=== PATIENT | female | born 1980 | race American Indian/Alaskan Native ===

== ENCOUNTER 2017-04-07 15:29 | Emergency (ER) | payer BC ==
[2017-04-07 16:24] LABS: Anion Gap 15 mmol/L; Basophils % (Auto) 0.5 % (0.0-1.8); Blood Urea Nitrogen 9 mg/dL (7-17); Carbon Dioxide 24 mmol/L (22-30); Glucose 97 mg/dL (65-100); Hematocrit 40.5 % (30.3-42.9); Hemoglobin 12.9 gm/dl (10.1-14.3); Mean Corpuscular HGB Conc 32 % (30-34); Mean Corpuscular Hemoglobin 27 pg (28-32); Mean Corpuscular Volume 84 fl (79-97); Platelet Count 155 K/mm3 (140-440); Potassium 4.1 mmol/L (3.6-5.0); Red Blood Count 4.81 M/mm3 (3.65-5.03); Red Cell Distribution Width 14.1 % (13.2-15.2); Sodium 138 mmol/L (137-145); White Blood Count 7.6 K/mm3 (4.5-11.0)
--- NOTE | 2017-04-07 16:29 | Emergency Department Report ---
ED Chest Pain HPI - General Chief Complaint: Chest Pain Stated Complaint: CHEST PAIN Time Seen by Provider: 04/07/17 16:01 Source: patient Mode of arrival: Ambulatory Limitations: No Limitations - History of Present Illness Initial Comments: 36-year-old female with sudden onset of right upper chest pain which she describes as sharp in nature started approximately 1 hour prior to arrival. Currently her symptoms are resolved. She states the pain radiated to her right arm and she broke out and ankle swelling. She's had a history of anxiety in the past but she does not feel like this was a panic attack. She denies fevers nausea or vomiting. She did get a chill with the chest pain. No recent travel not on an oral OCPs and she is not a smoker. -: Sudden Onset: during rest Pain Location: right chest Pain Radiation: RUE Severity: severe Severity scale (0 -10): 6 Quality: sharp Consistency: now resolved Worsens With: nothing Other Symptoms: denies: cough, fever, syncope, acid taste in mouth, leg swelling Treatments Prior to Arrival: none - Related Data Previous Rx's Medication Instructions Recorded Last Taken Type Ibuprofen [Motrin 600 MG tab] 600 mg PO Q8H PRN #30 tablet 04/07/17 Unknown Rx Allergies Allergy/AdvReac Type Severity Reaction Status Date / Time No Known Allergies Allergy Verified 05/07/16 23:18 Heart Score - HEART Score History: Slightly suspicious EKG: Normal Age: < 45 Risk factors: No known risk factors Troponin: < normal limit HEART Score: 0 - Critical Actions Critical Actions: 0-3 pts:0.9-1.7%risk of adverse cardiac event.Candidate for discharge ED Review of Systems ROS: Stated complaint: CHEST PAIN Other details as noted in HPI Constitutional: denies: chills, fever Eyes: denies: eye pain, eye discharge, vision change ENT: denies: ear pain, throat pain Respiratory: SOB at rest. denies: cough, shortness of breath, wheezing Cardiovascular: chest pain. denies: palpitations, dyspnea on exertion Endocrine: no symptoms reported Gastrointestinal: denies: abdominal pain, nausea, diarrhea Genitourinary: denies: urgency, dysuria, discharge Musculoskeletal: denies: back pain, joint swelling, arthralgia Skin: denies: rash, lesions Neurological: denies: headache, weakness, paresthesias Psychiatric: anxiety. denies: depression Hematological/Lymphatic: denies: easy bleeding, easy bruising ED Past Medical Hx - Past Medical History Previous Medical History?: No - Surgical History Past Surgical History?: No - Family History Family history: no significant - Social History Smoking Status: Never Smoker Substance Use Type: Alcohol - Medications Home Medications: Home Medications Medication Instructions Recorded Confirmed Last Taken Type Ibuprofen [Motrin 600 MG tab] 600 mg PO Q8H PRN #30 tablet 04/07/17 Unknown Rx ED Physical Exam - General Limitations: No Limitations General appearance: alert, in no apparent distress - Head Head exam: Present: atraumatic, normocephalic - Eye Eye exam: Present: normal appearance - ENT ENT exam: Present: mucous membranes moist - Neck Neck exam: Present: normal inspection - Respiratory Respiratory exam: Present: normal lung sounds bilaterally. Absent: respiratory distress - Cardiovascular Cardiovascular Exam: Present: regular rate, normal rhythm. Absent: systolic murmur, diastolic murmur, rubs, gallop - GI/Abdominal GI/Abdominal exam: Present: soft, normal bowel sounds - Extremities Exam Extremities exam: Present: normal inspection - Back Exam Back exam: Present: normal inspection - Neurological Exam Neurological exam: Present: alert, oriented X3 - Psychiatric Psychiatric exam: Present: normal affect, normal mood - Skin Skin exam: Present: warm, dry, intact, normal color. Absent: rash ED Course Vital Signs 04/07/17 04/07/17 04/07/17 15:42 15:53 15:54 Temperature 98.8 F Pulse Rate 73 Respiratory 20 Rate Blood Pressure 113/74 O2 Sat by Pulse 100 98 97 Oximetry 04/07/17 04/07/17 04/07/17 15:55 15:59 16:00 Temperature Pulse Rate 77 74 Respiratory 15 20 17 Rate Blood Pressure 122/78 122/78 O2 Sat by Pulse 100 99 Oximetry 04/07/17 04/07/17 16:30 17:00 Temperature Pulse Rate 69 66 Respiratory 26 H 19 Rate Blood Pressure 123/70 135/88 O2 Sat by Pulse 99 99 Oximetry MEHREEN score - Mehreen Score Age > 65: (0) No Aspirin use within the Past 7 Days: (0) No 3 or more CAD Risk Factors: (0) No 2 or more Angina events in past 24 hrs: (0) No Known CAD with more than 50% Stenosis: (0) No Elevated Cardiac Markers: (0) No ST Deviation Greater than 0.5mm: (0) No MEHREEN Score: 0 ED Medical Decision Making - Lab Data Result diagrams: 04/07/17 15:51 04/07/17 15:51 Laboratory Results - last 24 hr 04/07/17 04/07/17 15:51 15:51 WBC 7.6 RBC 4.81 Hgb 12.9 Hct 40.5 MCV 84 MCH 27 L MCHC 32 RDW 14.1 Plt Count 155 Lymph % (Auto) 18.9 [place] % (Auto) 8.7 H Eos % (Auto) 2.0 Baso % (Auto) 0.5 Lymph # 1.4 [place] # 0.7 Eos # 0.2 Baso # 0.0 Seg Neutrophils % 69.9 Seg Neutrophils # 5.3 Sodium 138 Potassium 4.1 Chloride 103.0 Carbon Dioxide 24 Anion Gap 15 BUN 9 Creatinine 0.5 L Estimated GFR > 60 BUN/Creatinine Ratio 18.00 Glucose 97 Calcium 9.0 Troponin T < 0.010 - EKG Data -: EKG Interpreted by Me EKG shows normal: sinus rhythm, axis, intervals, QRS complexes, ST-T waves Rate: normal (78) - Medical Decision Making 36-year-old female with a history of sudden onset of sharp right upper chest pain. She is low risk for PE but was tachycardic in the room. EKG, labs, chest x-ray. I do not believe this is ACS. Chest x-ray without acute disease process. D-dimer is negative. Plan to treat patient with oral NSAIDs and discharged home. Portions of this chart were dictated with dictation software. There may be dictation errors contained within this note. Critical care attestation.: If time is entered above; I have spent that time in minutes in the direct care of this critically ill patient, excluding procedure time. ED Disposition Clinical Impression: Chest pain Disposition: DC-01 TO HOME OR SELFCARE Is pt being admited?: No Condition: Stable Instructions: Chest Pain (ED) Prescriptions: Ibuprofen [Motrin 600 MG tab] 600 mg PO Q8H PRN #30 tablet PRN Reason: Pain Referrals: PRIMARY CARE, [Primary Care Provider] - 3-5 Days
[2017-04-07 18:01] VITALS: BP 135/88
--- NOTE | 2017-04-07 18:10 | XRay Report ---
FINAL REPORT PROCEDURE: XR CHEST ROUTINE 2V TECHNIQUE: Two views of the chest are obtained HISTORY: chest pain COMPARISON: No prior studies are available for comparison. FINDINGS: The heart is normal in size. There is no focal infiltrate or pneumothorax. Trace pleural fluid or thickening is seen in the pulmonary fissures. IMPRESSION: Trace pleural fluid or thickening is seen in the pulmonary fissures.
== END 2017-04-07 18:09 | disposition home or self-care (01) ==
LOC: ED 15:29
DX: R07.89 Other chest pain (principal)
CPT/HCPCS: 36415; 71020; 80048; 84484; 84703; 85025; 85379; 93005; 93010; 99284